=== PATIENT | female | born 1930 | race Caucasian/White ===

== ENCOUNTER 2016-11-23 20:51 | Observation (INO) ==
[2016-11-23 22:19] LABS: Basophils % 0.6 % (0.0-0.8); Eosinophils # 0.1 10*3/uL (0.0-0.87); Eosinophils % 0.9 % (0.00-10.9); Hematocrit 38.7 VOL% (35.7-47.0); Hemoglobin 13.8 GM/DL (12.0-16.0); Immature Granulocytes % 0.5 %; Immature Granulocytes Absolute 0.03 #; Lymphocytes # 0.3 10*3/uL (1.4-4.0); Lymphocytes % 5.4 % (21.3-54.2); Mean Corpuscular HGB Conc 35.7 GM/DL (32-36); Mean Corpuscular Hemoglobin 33 PG (27-34); Mean Corpuscular Volume 92.6 FL (87-102); Mean Platelet Volume 11.3 FL (9.6-12.0); Monocytes # 0.4 10*3/uL (0.11-0.8); Neutrophils # 5.4 10*3/uL (1.4-7.4); Neutrophils % 85.6 % (38.7-73.9); Platelet Count 113 T/CUMM (130-400); Red Blood Count 4.18 MC/CUMM (3.8-5.5); Red Cell Distribution Width 13.4 % (9.3-17.3); White Blood Count 6.3 T/CUMM (4-12)
[2016-11-23 22:24] LABS: Apearance,Urine Slightly Hazy (Clear); Bilirubin,Urine Negative (Negative); Blood, Urine Negative (Negative); Glucose,Urine (UA) Negative (Negative); Hyaline Casts,Urine 2 /LPF (0-3); Ketones,Urine Negative (Negative); Nitrite,Urine Negative (Negative); Protein,Urine Negative; RBC,Urine 1 /HPF (0-4); Squamous Epithelial Cell,Urine Occasional /HPF (0-10); Urine Color Yellow (Yellow); Urine Specific Gravity 1.008 (1.001-1.035); Urine Urobilinogen < 2.0 EU/DL (0.2-1.0); WBC,Urine 4 /HPF (0-6)
--- NOTE | 2016-11-23 22:29 | Order Completion Report ---
See report scanned to EMR
[2016-11-23 22:35] LABS: Albumin 3.6 G/DL (3.4-5.0); Bilirubin,Total 0.4 MG/DL (0.2-1.0); Calcium 8.5 MG/DL (8.5-10.1); Osmolality,Calculated 275.8 MOS/KG (273-304); Potassium 3.8 MMOL/L (3.5-5.1); Total Protein 6.5 G/DL (6.4-8.3)
--- NOTE | 2016-11-24 00:08 | Emergency Department Note ---
Arrival - Arrival Chief Complaint: Weakness ED Nursing Triage Note: pt brought in via ems from [facility] living with c/o weakness. pt ambulated to restroom, became weak and "had to sit in floor" pt had diarrhea at that time. was also found to have 101.5 temp. pt states that she had flu shot this am. Mode of Arrival: Stretcher Time Seen by Provider: 11/23/16 21:32 - History of Present Illness HPI Narrative: This is an 86-year-old white female with a history of a pacer who is living in an assisted living facility and who presents with generalized weakness and inability to stand associated with a temperature of 101 and diarrhea. The patient attempted to walk to the bathroom and had to sit on the floor because she felt so weak. In the emergency department the patient had an episode of diarrhea and was unable to get to the bathroom before she soiled herself. Vital signs are normal however the patient is unable to stand. Date of Last Menstrual Period: hysterectomy Allergies/Adverse Reactions: Allergies Allergy/AdvReac Type Severity Reaction Status Date / Time dimenhydrinate Allergy Unknown/Unable Verified 09/21/16 14:17 [From Dramamine] to obtain Sulfa (Sulfonamide Allergy Unknown/Unable Verified 09/21/16 14:17 Antibiotics) to obtain Review of System - Review of System Constitutional: Present: fever. Absent: night sweats, weakness Eyes: Absent: redness, vision change Head/Ears/Nose/Throat: Absent: epistaxis, nasal drainage Respiratory: Absent: respiratory distress, wheezing Cardiovascular: Absent: dyspnea on exertion, orthopnea, edema Gastrointestinal: Present: diarrhea. Absent: nausea, vomiting Genitourinary female: Absent: dysuria, frequency Musculoskeletal: Absent: joint swelling, lower back pain Skin: Absent: change in color, change in hair/nails, pruritus Neurological: Absent: numbness, paresthesias, confusion Psychiatric: Absent: anxiety, depression Endocrine: Absent: polydipsia, polyuria Hematological/Lymphatic: Absent: easy bruising, lymphadenopathy Allergic/Immunologic: Absent: urticaria, itchy eyes Medical,Surgical,& Family Hx - Medical History Cardio: History of: Cardiac Dysrhythmia (afib), Hypertension, Pacemaker Neurology: History of: Cerebrovascular Accident Endocrine: History of: Dyslipidemia - Social History Smoking Status: Never smoker Frequency of Alcohol Use: None Type of Drug Use: None Exam Vital Signs: Vital Signs Temperature 99.3 F 11/23/16 20:51 Pulse Rate 96 H 11/23/16 20:51 Respiratory Rate 20 11/23/16 20:51 Blood Pressure 180/101 11/23/16 20:51 O2 Sat by Pulse Oximetry 97 11/23/16 20:51 - General General appearance: alert - Head Head exam: Present: atraumatic, normocephalic - Eye Eye exam: Present: normal appearance, PERRL, EOMI - ENT ENT exam: Present: normal exam, normal oropharynx - Neck Neck exam: Present: normal inspection, full ROM - Chest Chest inspection: Present: normal inspection - Respiratory Respiratory exam: Present: normal lung sounds bilaterally - Cardiovascular Cardiovascular exam: Present: regular rate, normal rhythm - Abdominal Exam Abdominal exam: Present: soft, normal bowel sounds - Extremities Exam Extremities exam: Present: normal inspection, full ROM - Back Exam Back exam: Present: normal inspection, full ROM - Neurological Exam Neurological exam: Present: alert, oriented X3, CN II-XII intact - Psychiatric Psychiatric exam: Present: normal affect, normal mood - Skin Skin exam: Present: warm, dry Course Course Narrative: The patient's laboratory tests are normal. Because of the diarrhea is unexplained. The patient is incontinent of stool. There is no fever at this time and there is no suggestion that she has a septic picture. She lives in an assisted living facility and must be able to ambulate without assistance and in the emergency department the patient cannot stand on her own without falling. Although the laboratory tests are normal the patient will be admitted to the hospital under the hospitalist service because of ambulatory dysfunction unexplained diarrhea. Results - Labs CBC & BMP: 11/23/16 21:37 11/23/16 21:37 Disposition Clinical Impression: Intractable diarrhea, Ambulatory dysfunction Disposition: Still a Patient Additional Instructions: Because the patient is unable to stand which is a requirement for her assisted living facility because of intractable diarrhea of unclear etiology it seems reasonable the patient should be admitted to the hospital for further evaluation and treatment. The case was discussed with the hospitalist who agreed to admit the patient.
[2016-11-24] MEDS ORDERED: ONDANSETRON 4 MG/2 ML VIAL IV PRN (00:42)
[2016-11-24] MEDS ORDERED: ACETAMINOPHEN 325 MG TABLET PO PRN (00:42)
--- NOTE | 2016-11-24 00:50 | Hospitalist History & Physical ---
Assessment and Plan (1) Weakness Status: Acute Current Visit: Yes (2) Gastroenteritis Status: Acute Current Visit: Yes (3) Urinary tract infection Status: Acute Current Visit: Yes (4) Hypertension Status: Acute Current Visit: Yes (5) History of stroke Status: Acute Current Visit: Yes (6) Intractable diarrhea Status: Acute Assessment and plan: Our plan for this patient will be admitting her to our service. We will provide gentle hydration through the night. If she has diarrhea again we will do stool cultures. She appears to have urinary tract infection will treat that with Rocephin and culture her urine. Continue home meds once they are confirmed repeat labs in the morning. Also get physical therapy to evaluate her. Current Visit: Yes History of Present Illness Chief complaint: Weakness diarrhea fever History of present illness: Ms. Dubois is a 86 year old female with past medical history significant for hypertension pacemaker placement and stroke who was in her normal state of health until tonight. Patient went up to go to the bathroom she got will weak and went down to the floor. She is having fever and diarrhea. Patient reports she got her flu shot yesterday and questions whether this might have caused this. Patient has remained weak and lightheaded. I was consulted to admit her through the emergency room. She sees Dr. Chakraborty is her primary care provider. Allergies Allergy/AdvReac Type Severity Reaction Status Date / Time dimenhydrinate Allergy Unknown/Unable Verified 09/21/16 14:17 [From Dramamine] to obtain Sulfa (Sulfonamide Allergy Unknown/Unable Verified 09/21/16 14:17 Antibiotics) to obtain Medical,Surgical,& Family Hx - Medical History Cardio: History of: Cardiac Dysrhythmia (afib), Hypertension, Pacemaker Neurology: History of: Cerebrovascular Accident Endocrine: History of: Dyslipidemia - Surgical History Reproductive Surgeries: Surgical HX of;: Breast Surgery, Hysterectomy - Family History Family History: Reports;: Family Cancer, Family Diabetes, Family Heart Disease - Social History Smoking Status: Never smoker Frequency of Alcohol Use: None Type of Drug Use: None 12 point system: reviewed and no additional remarkable complaints except as stated Exam - Constitutional Vitals: Period Temp Pulse Resp BP Sys/Brown Pulse Ox Last 24 Hr 99.3 F-99.3 F 96-96 20-20 180-180/101-101 97 General appearance: normal weight - Head Head exam: Present: normal inspection - Eye Eye exam: Present: EOMI Pupils: Present: JANKI - ENT ENT exam: Present: normal exam - Neck Neck exam: Present: normal inspection - Respiratory Respiratory exam: Present: clear to auscultation bilaterally - Cardiovascular Cardiovascular exam: Present: regular rate and rhythm - GI/Abdominal GI/Abdominal exam: Present: normal bowel sounds - Extremities Exam Extremities exam: Present: normal inspection - Back Exam Back exam: Present: normal inspection - Neurological Exam Neurological exam: Present: alert - Psychiatric Psychiatric exam: Present: normal affect - Skin Skin exam: Present: normal color Results - Labs CBC & BMP: 11/23/16 21:37 11/23/16 21:37
[2016-11-24] MEDS ORDERED: SODIUM CHLORIDE 0.9% 1,000 ML IV SCH (01:00)
[2016-11-24] MEDS ORDERED: LABETALOL 20 MG/4 ML SYRINGE IV PRN (01:57)
[2016-11-24 06:31] LABS: Basophils % 0.5 % (0.0-0.8); Eosinophils % 0.5 % (0.00-10.9); Hematocrit 33.8 VOL% (35.7-47.0); Immature Granulocytes % 0.3 %; Immature Granulocytes Absolute 0.02 #; Lymphocytes # 0.6 10*3/uL (1.4-4.0); Lymphocytes % 10.2 % (21.3-54.2); Mean Corpuscular HGB Conc 35.5 GM/DL (32-36); Mean Corpuscular Hemoglobin 33 PG (27-34); Mean Corpuscular Volume 91.6 FL (87-102); Mean Platelet Volume 10.7 FL (9.6-12.0); Monocytes # 0.6 10*3/uL (0.11-0.8); Monocytes % 9.9 % (1.7-12.7); Neutrophils # 4.8 10*3/uL (1.4-7.4); Neutrophils % 78.6 % (38.7-73.9); Platelet Count 109 T/CUMM (130-400); Red Blood Count 3.69 MC/CUMM (3.8-5.5); Red Cell Distribution Width 13.3 % (9.3-17.3); White Blood Count 6.1 T/CUMM (4-12)
[2016-11-24 07:07] LABS: Albumin 2.7 G/DL (3.4-5.0); Bilirubin,Total 0.6 MG/DL (0.2-1.0); Calcium 8.4 MG/DL (8.5-10.1); Osmolality,Calculated 276.5 MOS/KG (273-304); Potassium 3.2 MMOL/L (3.5-5.1); Total Protein 5.4 G/DL (6.4-8.3)
--- NOTE | 2016-11-24 08:19 | XRay Report ---
Portable chest Date: 11/23/2016 Clinical history: Fever Comparison: 08/12/2013 Technique: Portable AP sitting chest Findings: The heart is minimally enlarged with uncoiling of aorta. Left subclavian atrioventricular permanent pacemaker is stable in position. Chronic scarring in the lungs with minimal atelectasis/infiltration at left lung base. Calcified granulomata/nodes. Degenerative changes are noted. Impression: Minimal cardiomegaly with left subclavian atrioventricular permanent pacemaker. Chronic scarring with minimal atelectasis/infiltration at left lung base. PROCEDURE INTERPRETED AT [facility] DEPARTMENT OF RADIOLOGY Final Report Signed by: Dr. Poornima Edmondson
[2016-11-24] MEDS: ENOXAPARIN 40 MG/0.4 ML SYRINGE SUBCUT SCH (08:35)
[2016-11-24] MEDS ORDERED: PANTOPRAZOLE 40 MG TABLET PO SCH (09:00)
[2016-11-24] MEDS: metroNIDAZOLE INJ 500 MG in PREMIX 1 EACH IV SCH ×2 (09:40→20:43)
--- NOTE | 2016-11-24 09:40 | CT Report ---
Referring physician: Shira Morales MD EXAM: CT abdomen and pelvis without contrast DATE: 11/24/2016 COMPARISON: None REASON: Diarrhea, fever TECHNIQUE: Axial images of the abdomen and pelvis were obtained without the use of contrast. Coronal and sagittal reformatted images were also provided. Total DLP is 250.10 mGy*cm. FINDINGS: Atelectasis at the lung bases. The heart is enlarged with permanent pacemaker and coronary artery calcifications. Tiny pleural effusions/minimal posterior pleural thickening. Calcified granulomata in the liver and spleen. Minimal elongation of the right lobe of the liver with 24 x 21 x 18 mm hypodensity in the posterior right lobe. No dilated ducts are noted. The gallbladder is contracted and appears to contain minimal hyperdense findings. No definite pathology noted in the pancreas, adrenal glands, and kidneys. Calcification in the wall the nondilated abdominal aorta with no adjacent adenopathy. The small bowel is larger in size in the left upper quadrant measuring 35 mm in diameter. The more distal small bowel is smaller in size. Small fat-containing umbilical hernia. Limited evaluation of bowel without oral contrast. Diverticulosis of the colon with no evidence of definite diverticulitis, appendicitis, free air, or free fluid. Prior hysterectomy with no definite urinary bladder pathology identified. Minimal dextroscoliosis with degenerative changes. IMPRESSION: Cardiomegaly with permanent pacemaker and coronary artery calcifications. Tiny pleural effusions/minimal posterior pleural thickening with atelectasis at the lung bases. Evidence of old healed granulomatous disease with 24 mm probable right hepatic cyst. Contracted gallbladder with equivocal cholelithiasis. Fasting gallbladder ultrasound may be helpful for further evaluation. Minimal dilatation of the small bowel in the left upper quadrant which could be related possible ileus but it is difficult to exclude possible early SBO, etc. Small fat-containing umbilical hernia with diverticulosis of the colon. Limited evaluation of the bowel without oral contrast. Prior hysterectomy. The CT exam was performed using one or more of the following dose reduction techniques: Automated exposure control and adjustment of the mA and/or kV according to patient size. PROCEDURE INTERPRETED AT [facility] DEPARTMENT OF RADIOLOGY Final Report Signed by: Dr. Poornima Edmondson
--- NOTE | 2016-11-24 10:58 | Hospitalist Progress Note ---
Assessment and Plan (1) Urinary tract infection Status: Acute Assessment and plan: continue with IVF, IV antibiotics, follow cultures Current Visit: Yes (2) Gall stones Status: Acute Assessment and plan: CT showed Contracted gallbladder with equivocal cholelithiasis. plan Fasting gall bladder USS Consult surgery Current Visit: Yes (3) Ileus Status: Acute Assessment and plan: vs early SBO on CT. Patient apparently tolerating po intake Plan Liquid diet KUB continue with IVF, IV antibiotics Current Visit: Yes (4) History of atrial fibrillation Status: Acute Assessment and plan: s/p pacemaker.HR is controlled. We will get an INR before Coumadin is resumed, we will restart rate controlling agents. Current Visit: Yes (5) Hypokalemia Status: Acute Assessment and plan: we will replete, repeat levels in am Current Visit: Yes (6) Weakness Status: Acute Assessment and plan: improving Current Visit: Yes (7) Hypertension Status: Acute Assessment and plan: Resume home meds Current Visit: Yes (8) History of stroke Status: Acute Assessment and plan: resume aspirin Current Visit: Yes (9) Dyslipidemia Status: Acute Assessment and plan: resume statins Current Visit: Yes Hospitalist: Subjective Interval history: Patient seen this am. She states that she only had an episode of diarrhoea after receiving her flu shots yesterday. She denies abd pain, nausea, vomiting. She also denies urinary symptoms. This am, she feels much better. CT abd/pelvis showed some contracted gall bladder with equivocal cholelithiasis and possible ileus vs early small bowel obstruction. Exam - Constitutional Vitals: Period Temp Pulse Resp BP Sys/Brown Pulse Ox Last 24 Hr 98.2 F-99.3 F 76-98 18-20 143-180/72-101 96-98 General appearance: no acute distress - Head Head exam: Present: normal inspection - Respiratory Respiratory exam: Present: clear to auscultation bilaterally - Cardiovascular Cardiovascular exam: Present: regular rate and rhythm - GI/Abdominal GI/Abdominal exam: Present: normal bowel sounds - Extremities Exam Extremities exam: Present: normal inspection - Neurological Exam Neurological exam: Present: alert, oriented X3 Results - Labs CBC & BMP: 11/24/16 06:21 11/24/16 06:21 Lab Results: I have reviewed the past 24 hour labs
[2016-11-24] MEDS: PANTOPRAZOLE 40 MG VIAL IV SCH (11:32)
[2016-11-24 11:47] LABS: INR 2.2
[2016-11-24 11:54] LABS: PT Patient Result 22.1 SECS
--- NOTE | 2016-11-24 15:32 | XRay Report ---
KUB. Indication: Generalized abdominal pain. Ileus. No prior studies. The heart is borderline enlarged. The lung bases are clear. No intra-abdominal organomegaly. There is moderate gaseous distention of small and large intestine, with gas extending to the rectum, excluding complete obstruction. Scattered vascular calcification. Scoliosis and degenerative change involving the spinal column. Impression: Moderate gaseous distention of bowel. PROCEDURE INTERPRETED AT [facility] DEPARTMENT OF RADIOLOGY Final Report Signed by: Dr. Melody Li
[2016-11-24] MEDS: CARVEDILOL 25 MG TABLET PO SCH (16:58)
[2016-11-24] MEDS: SODIUM CHLOR 0.9% KCL 20 MEQ 20 MEQ/1,000 ML BAG IV SCH (17:43)
[2016-11-24] MEDS: SOTALOL 80 MG TABLET PO SCH (20:41)
[2016-11-24] MEDS: DOCUSATE SODIUM 100 MG CAPSULE PO SCH (20:41)
[2016-11-24] MEDS: SIMVASTATIN 10 MG TABLET PO SCH (20:41)
--- NOTE | 2016-11-24 20:43 | General Surgery Consult Note ---
Assessment and Plan - Time spent with patient Time spent with patient: Less than 30 minutes (1) Chronic cholecystitis Status: Acute Assessment and plan: Impression: Probable chronic cholecystitis Plan 1 I think just good observation of her can be the best option due to her age and other medical problems. 2. Would not pursue surgery unless there was more definitive evidence that she was having symptoms related to the gallbladder. 3. Contracted gallbladder could be due to the fact she is recently eaten or gotten some medication at the time they did a CT are the fact that it may be a chronic contraction has been that way for many years without any unusual symptoms. I feel like observation is going to be our safest bed unless something comes up her presents itself is being more positive for gallbladder disease. Current Visit: Yes History of Present Illness Chief complaint: As to see patient with a contracted gallbladder on CT History of present illness: Ms. Dubois is a 86 year old female white who has multiple medical problems including pacemaker and history of stroke. She is on Coumadin at this time and her INR is elevated at 2.2. She came in primarily because she had some syncope with weakness and some diarrhea. She has not complained of any abdominal discomfort during this time. She is put in on some IV fluids at this time and a CT scan essentially was unremarkable except for the contracted gallbladder that was noted. Patient does not give any history suggestive of any fatty food intolerance she does not describe any tenderness in the epigastric area or right upper quadrant region. White count stenosing not significantly elevated liver function studies are normal at this point. The contracted gallbladder may be a chronic thing and may not be of any significance this time and may not represent any acute disease. Unless she had something more specific symptom davies and physical finding davies I am not sure in her general status to be davies to proceed surgery at this time. If there is no problem with her eating and no unusual nausea or vomiting or anything associated with meals then we may be able to just watch her at this point time. I see that an ultrasound has been ordered and also go ahead and check a HIDA scan although I must expecting it to be very accurate at this time. Home Medications Medication Instructions Recorded Confirmed Type Aspirin EC Tab 325 mg PO DAILY 11/24/16 11/24/16 History Carvedilol [Coreg] 25 mg PO BID W/MEALS 11/24/16 11/24/16 History Docusate Sodium 100 mg PO BID 11/24/16 11/24/16 History Lactulose Liquid [Chronulac] 20 gm PO DAILY 11/24/16 11/24/16 History Lisinopril 20 mg PO DAILY 11/24/16 11/24/16 History Mv-Mn/FA/Coq10/Lycopene/Lutein 1 each PO DAILY 11/24/16 11/24/16 History [Theragran-M Premier 50+ Caplet] Omeprazole 20 mg PO DAILY 11/24/16 11/24/16 History Raloxifene [Evista] 60 mg PO DAILY 11/24/16 11/24/16 History Simvastatin 10 mg PO BEDTIME 11/24/16 11/24/16 History Sotalol [Betapace] 160 mg PO BID 11/24/16 11/24/16 History Warfarin [Coumadin] 4 mg PO SUTUWEFRSA@18 11/24/16 11/24/16 History Warfarin [Coumadin] 6 mg PO MOTH@18 11/24/16 11/24/16 History amLODIPine [Norvasc] 2.5 mg PO DAILY 11/24/16 11/24/16 History Allergies Allergy/AdvReac Type Severity Reaction Status Date / Time dimenhydrinate Allergy Unknown/Unable Verified 09/21/16 14:17 [From Dramamine] to obtain Sulfa (Sulfonamide Allergy Unknown/Unable Verified 09/21/16 14:17 Antibiotics) to obtain Medical,Surgical,& Family Hx - Medical History Cardio: History of: Cardiac Dysrhythmia (afib), Hypertension, Pacemaker Neurology: History of: Cerebrovascular Accident Endocrine: History of: Dyslipidemia - Surgical History Reproductive Surgeries: Surgical HX of;: Breast Surgery, Hysterectomy - Family History Family History: Reports;: Family Cancer, Family Diabetes, Family Heart Disease - Social History Smoking Status: Never smoker Frequency of Alcohol Use: None Type of Drug Use: None 12 point system: reviewed and no additional remarkable complaints except as stated Exam - Constitutional Vitals: Period Temp Pulse Resp BP Sys/Brown Pulse Ox Last 24 Hr 98.0 F-99.3 F 65-100 18-20 143-180/69-101 95-98 General appearance: mild distress - Head Head exam: Present: normal inspection - ENT ENT exam: Present: normal exam - Neck Neck exam: Present: normal inspection - Respiratory Respiratory exam: Present: rales, rhonchi - Cardiovascular Cardiovascular exam: Present: RRR - GI/Abdominal GI/Abdominal exam: Present: hypoactive bowel sounds, soft. Absent: tenderness - Extremities Exam Extremities exam: Present: normal inspection - Back Exam Back exam: Present: normal inspection - Neurological Exam Neurological exam: Present: alert, oriented X3, CN II-XII intact - Skin Skin exam: Present: normal color, warm, dry Results - Labs CBC & BMP: 11/24/16 06:21 11/24/16 06:21 Lab Results: I have reviewed the past 24 hour labs - Diagnostic Findings Procedure: CT Abdomen and Pelvis: report reviewed by me (Contracted gallbladder)
[2016-11-25] MEDS: metroNIDAZOLE INJ 500 MG in PREMIX 1 EACH IV SCH ×3 (04:50→21:23)
[2016-11-25 06:09] LABS: Basophils # 0.1 10*3/uL (0.0-0.2); Basophils % 1.1 % (0.0-0.8); Eosinophils # 0.3 10*3/uL (0.0-0.87); Eosinophils % 5.5 % (0.00-10.9); Hematocrit 36.1 VOL% (35.7-47.0); Hemoglobin 12.4 GM/DL (12.0-16.0); Immature Granulocytes % 0.2 %; Immature Granulocytes Absolute 0.01 #; Lymphocytes # 0.9 10*3/uL (1.4-4.0); Mean Corpuscular HGB Conc 34.3 GM/DL (32-36); Mean Corpuscular Hemoglobin 32 PG (27-34); Mean Corpuscular Volume 93.8 FL (87-102); Mean Platelet Volume 11.8 FL (9.6-12.0); Monocytes # 0.7 10*3/uL (0.11-0.8); Monocytes % 14.5 % (1.7-12.7); Neutrophils # 2.8 10*3/uL (1.4-7.4); Neutrophils % 59.7 % (38.7-73.9); Platelet Count 100 T/CUMM (130-400); Red Blood Count 3.85 MC/CUMM (3.8-5.5); Red Cell Distribution Width 13.8 % (9.3-17.3); White Blood Count 4.7 T/CUMM (4-12)
[2016-11-25 06:25] LABS: INR 1.9; PT Patient Result 19.4 SECS
[2016-11-25 06:47] LABS: Albumin 2.7 G/DL (3.4-5.0); Bilirubin,Total 0.6 MG/DL (0.2-1.0); Calcium 8.5 MG/DL (8.5-10.1); Magnesium 2.2 MG/DL (1.8-2.4); Potassium 3.9 MMOL/L (3.5-5.1); Total Protein 5.5 G/DL (6.4-8.3)
--- NOTE | 2016-11-25 08:45 | Ultrasound Report ---
History is abdominal pain The liver is normal in size. There is a 2.3 cm cyst with thin septation in the right lobe of the liver No gallstones or biliary ductal dilatation seen There is mild dilatation of the renal calyces on the right. Right renal cortical echogenicity is normal Visualized pancreas and proximal aorta and IVC are normal in size Impression: 1. Mild caliectasis in the right kidney. Is there any clinical question of acute ureteral obstruction? 2. 2.3 cm mildly complicated hepatic cyst PROCEDURE INTERPRETED AT [facility] DEPARTMENT OF RADIOLOGY Final Report Signed by: Dr. Joy Li
--- NOTE | 2016-11-25 09:38 | Nuclear Medicine Report ---
History is contracted gallbladder and diarrhea 5.0 mCi technetium 99m Choletec utilized There is prompt uptake of radiotracer in the liver Gallbladder activity seen at 20 minutes Small bowel activity seen at 45 minutes Following administration of 8 ounces of ensure p.o., estimated gallbladder ejection fraction is 80% (normal is 40% or greater) Impression: Unremarkable gallbladder scan with normal gallbladder ejection fraction PROCEDURE INTERPRETED AT [facility] DEPARTMENT OF RADIOLOGY Final Report Signed by: Dr. Joy Li
[2016-11-25] MEDS: CARVEDILOL 25 MG TABLET PO SCH ×2 (10:40→17:15)
[2016-11-25] MEDS: ASPIRIN EC 325 MG TABLET PO SCH (10:41)
[2016-11-25] MEDS: SOTALOL 80 MG TABLET PO SCH ×2 (10:41→21:24)
[2016-11-25] MEDS: MULTIVITAMIN (CENTRUM) TABLET PO SCH (10:41)
[2016-11-25] MEDS: DOCUSATE SODIUM 100 MG CAPSULE PO SCH ×2 (10:42→21:23)
[2016-11-25] MEDS: ENOXAPARIN 40 MG/0.4 ML SYRINGE SUBCUT SCH (10:42)
[2016-11-25] MEDS: LACTULOSE 20 GM/30 ML UDCUP PO SCH ×2 (10:42→17:18)
[2016-11-25] MEDS: RALOXIFENE 60 MG TABLET PO SCH (10:42)
[2016-11-25] MEDS: amLODIPine 2.5 MG TABLET PO SCH (10:43)
[2016-11-25] MEDS: LISINOPRIL 20 MG TABLET PO SCH (10:43)
[2016-11-25] MEDS: PANTOPRAZOLE 40 MG VIAL IV SCH (10:43)
--- NOTE | 2016-11-25 12:16 | Hospitalist Progress Note ---
Assessment and Plan (1) Urinary tract infection Status: Acute Assessment and plan: UC grew gram positive cocci. USS showed a Mild caliectasis in the right kidney. Plan Urology consult continue with IVF, IV antibiotics, Current Visit: Yes (2) Gall stones Status: Acute Assessment and plan: CT showed Contracted gallbladder with equivocal cholelithiasis.USS showed Mild caliectasis in the right kidney. Is there any clinical question of acute ureteral obstruction? 2. 2.3 cm mildly complicated hepatic cyst HIDA scan showed:Unremarkable gallbladder scan with normal gallbladder ejection fraction plan Follow surgery's recommendations Current Visit: Yes (3) Ileus Status: Acute Assessment and plan: vs early SBO on CT. Patient apparently tolerating po intake, Continue liquid diet, will advance feeds in am. Plan continue with IVF, IV antibiotics Current Visit: Yes (4) History of atrial fibrillation Status: Acute Assessment and plan: s/p pacemaker.HR is controlled. Coumadin to be resumed, continue with meds Current Visit: Yes (5) Hypokalemia Status: Acute Assessment and plan: repleted Current Visit: Yes (6) Weakness Status: Acute Assessment and plan: improving Current Visit: Yes (7) Hypertension Status: Acute Assessment and plan: stable Current Visit: Yes (8) History of stroke Status: Acute Assessment and plan: on aspirin Current Visit: Yes (9) Dyslipidemia Status: Acute Assessment and plan: on statins Current Visit: Yes Hospitalist: Subjective Interval history: Patient seen today. She had no new issues.She feels better. HIDA scan showed Unremarkable gallbladder scan with normal gallbladder ejection fraction.Abd USS showed a Mild caliectasis in the right kidney and a 2.3 cm mildly complicated hepatic cyst Exam - Constitutional Vitals: Period Temp Pulse Resp BP Sys/Brown Pulse Ox Last 24 Hr 97.3 F-98.7 F 62-71 18-20 138-152/69-86 95-98 General appearance: no acute distress - Head Head exam: Present: normal inspection - Respiratory Respiratory exam: Present: clear to auscultation bilaterally - Cardiovascular Cardiovascular exam: Present: regular rate and rhythm - GI/Abdominal GI/Abdominal exam: Present: normal bowel sounds - Extremities Exam Extremities exam: Present: normal inspection - Back Exam Back exam: Present: normal inspection - Neurological Exam Neurological exam: Present: alert, oriented X3 Results - Labs CBC & BMP: 11/25/16 05:35 11/25/16 05:34 Lab Results: I have reviewed the past 24 hour labs
--- NOTE | 2016-11-25 14:40 | Urology Consultation ---
History of Present Illness - Data of Consult Consult date: 11/25/16 - Consult Narrative History of present illness: Ms. Dubois is a 86 year old female This 86-year-old white female is seen in consultation because of possible caliectasis the right kidney seen on gallbladder ultrasound the patient has no flank pain and her only urinary symptom is urinary frequency. She has a negative urinalysis and a positive clean-catch urine culture. The patient has no past history of any serious urological problems and she has had a negative KUB and a CT scan of the abdomen and pelvis without contrast shows no stones no evidence of hydronephrosis and no renal mass. There is no significant hematuria on urinalysis and her creatinine is normal. The radiologist questions whether or not there is ureteral obstruction on the right side so on the recommended we screen her with an IVP CC: Shira Morales MD - Home Medications and Allergies Home Medications: Home Medications Medication Instructions Recorded Confirmed Type Aspirin EC Tab 325 mg PO DAILY 11/24/16 11/24/16 History Carvedilol [Coreg] 25 mg PO BID W/MEALS 11/24/16 11/24/16 History Docusate Sodium 100 mg PO BID 11/24/16 11/24/16 History Lactulose Liquid [Chronulac] 20 gm PO DAILY 11/24/16 11/24/16 History Lisinopril 20 mg PO DAILY 11/24/16 11/24/16 History Mv-Mn/FA/Coq10/Lycopene/Lutein 1 each PO DAILY 11/24/16 11/24/16 History [Theragran-M Premier 50+ Caplet] Omeprazole 20 mg PO DAILY 11/24/16 11/24/16 History Raloxifene [Evista] 60 mg PO DAILY 11/24/16 11/24/16 History Simvastatin 10 mg PO BEDTIME 11/24/16 11/24/16 History Sotalol [Betapace] 160 mg PO BID 11/24/16 11/24/16 History Warfarin [Coumadin] 4 mg PO SUTUWEFRSA@18 11/24/16 11/24/16 History Warfarin [Coumadin] 6 mg PO MOTH@18 11/24/16 11/24/16 History amLODIPine [Norvasc] 2.5 mg PO DAILY 11/24/16 11/24/16 History Allergies/Adverse Reactions: Allergies Allergy/AdvReac Type Severity Reaction Status Date / Time dimenhydrinate Allergy Unknown/Unable Verified 09/21/16 14:17 [From Dramamine] to obtain Sulfa (Sulfonamide Allergy Unknown/Unable Verified 09/21/16 14:17 Antibiotics) to obtain Medical,Surgical,& Family Hx - Medical History Cardio: History of: Cardiac Dysrhythmia (afib), Hypertension, Pacemaker Neurology: History of: Cerebrovascular Accident Endocrine: History of: Dyslipidemia - Surgical History Reproductive Surgeries: Surgical HX of;: Breast Surgery, Hysterectomy - Family History Family History: Reports;: Family Cancer, Family Diabetes, Family Heart Disease - Social History Smoking Status: Never smoker Frequency of Alcohol Use: None Type of Drug Use: None Exam - Constitutional Vitals: Period Temp Pulse Resp BP Sys/Brown Pulse Ox Last 24 Hr 97.3 F-98.7 F 62-71 18-20 138-152/69-86 95-98 Results - Labs CBC & BMP: 11/25/16 05:35 11/25/16 05:34
--- NOTE | 2016-11-25 17:07 | XRay Report ---
IVP PE with tomograms. Indication: Gallbladder ultrasound suggesting caliectasis at the right kidney. [facility] radiograph demonstrates a mild gaseous distention of bowel, with numerous pelvic calcifications. Curvilinear calcification on the right, at the L5 level, likely vascular. Following the intravenous administration of 100 cc Omni 300, renal excretion is prompt and uniform. The renal outlines are normal in size, location, and contour. The collecting systems fill out readily, without evidence of pelvocaliectasis. The ureters are normal in course and caliber. The urinary bladder presents a normal appearance. There is a minimal post void residual within the urinary bladder following voiding. Impression: Normal IVP. Mild increased post void residual within the urinary bladder. PROCEDURE INTERPRETED AT [facility] DEPARTMENT OF RADIOLOGY Final Report Signed by: Dr. Melody Li
[2016-11-25] MEDS: SODIUM CHLOR 0.9% KCL 20 MEQ 20 MEQ/1,000 ML BAG IV SCH (17:20)
[2016-11-25] MEDS ORDERED: WARFARIN 4 MG TABLET PO SCH (18:00)
[2016-11-25] MEDS: SIMVASTATIN 10 MG TABLET PO SCH (21:24)
[2016-11-26 03:37] LABS: Eosinophils # 0.3 10*3/uL (0.0-0.87); Eosinophils % 6.5 % (0.00-10.9); Hematocrit 32.7 VOL% (35.7-47.0); Hemoglobin 11.3 GM/DL (12.0-16.0); Immature Granulocytes % 0.5 %; Immature Granulocytes Absolute 0.02 #; Lymphocytes # 1.2 10*3/uL (1.4-4.0); Mean Corpuscular HGB Conc 34.6 GM/DL (32-36); Mean Corpuscular Hemoglobin 32 PG (27-34); Mean Corpuscular Volume 92.9 FL (87-102); Mean Platelet Volume 11.2 FL (9.6-12.0); Monocytes # 0.7 10*3/uL (0.11-0.8); Monocytes % 16.7 % (1.7-12.7); Neutrophils # 1.9 10*3/uL (1.4-7.4); Neutrophils % 45.3 % (38.7-73.9); Platelet Count 101 T/CUMM (130-400); Red Blood Count 3.52 MC/CUMM (3.8-5.5); Red Cell Distribution Width 13.7 % (9.3-17.3); White Blood Count 4.1 T/CUMM (4-12)
[2016-11-26 03:47] LABS: INR 1.7; PT Patient Result 17.9 SECS
[2016-11-26 04:04] LABS: Calcium 8.1 MG/DL (8.5-10.1); Osmolality,Calculated 281.1 MOS/KG (273-304); Potassium 3.7 MMOL/L (3.5-5.1)
[2016-11-26 05:12] LABS: Eosinophils 6 % (0-10); Giant Platelets Few; Hypochromasia 1+; Lymphocytes 29 % (20-55); Microcytosis Slight; Ovalocytes Slight; Platelet Estimate Decreased; Segmented Neutrophils 59 % (50-85); Total Cells Counted 100
--- NOTE | 2016-11-26 07:56 | Urology Progress Note ---
Urology - PN: Subj Interval history: The patient's IVP is normal. There is no evidence of caliectasis Exam - Constitutional Vitals: Period Temp Pulse Resp BP Sys/Brown Pulse Ox Last 24 Hr 97.2 F-98.2 F 61-75 18-20 128-144/63-84 93-97 Results - Labs CBC & BMP: 11/26/16 03:01 11/26/16 03:01
[2016-11-26] MEDS: LISINOPRIL 20 MG TABLET PO SCH (08:58)
[2016-11-26] MEDS: RALOXIFENE 60 MG TABLET PO SCH (08:58)
[2016-11-26] MEDS: CARVEDILOL 25 MG TABLET PO SCH (08:59)
[2016-11-26] MEDS: SOTALOL 80 MG TABLET PO SCH (08:59)
[2016-11-26] MEDS: MULTIVITAMIN (CENTRUM) TABLET PO SCH (08:59)
[2016-11-26] MEDS: amLODIPine 2.5 MG TABLET PO SCH (09:00)
[2016-11-26] MEDS: ASPIRIN EC 325 MG TABLET PO SCH (09:00)
[2016-11-26] MEDS: DOCUSATE SODIUM 100 MG CAPSULE PO SCH ×2 (09:00→09:09)
[2016-11-26] MEDS: LACTULOSE 20 GM/30 ML UDCUP PO SCH ×2 (09:00→09:08)
[2016-11-26] MEDS: ENOXAPARIN 40 MG/0.4 ML SYRINGE SUBCUT SCH (09:00)
[2016-11-26] MEDS: PANTOPRAZOLE 40 MG VIAL IV SCH (09:09)
[2016-11-26] MEDS: metroNIDAZOLE INJ 500 MG in PREMIX 1 EACH IV SCH (09:10)
--- NOTE | 2016-11-26 09:21 | General Surgery Progress Note ---
Assessment and Plan - Time spent with patient Time spent with patient: Less than 30 minutes (1) Chronic cholecystitis Status: Acute Assessment and plan: 11/26/2016. Contracted gallbladder but no evidence of gallstones and normal HIDA scan. The patient is now asymptomatic and from our standpoint could be advanced to diet as tolerated. We will be happy to see her again at any point. Current Visit: Yes Subjective Patient reports: Present: no new complaints, tolerating liquids well. Absent: diarrhea, nausea, vomiting Exam - Constitutional Vitals: Period Temp Pulse Resp BP Sys/Brown Pulse Ox Last 24 Hr 97.2 F-98.2 F 61-75 18-20 128-144/63-84 93-97 General appearance: no acute distress - GI/Abdominal GI/Abdominal exam: Present: normal bowel sounds, soft. Absent: tenderness Results - Labs CBC & BMP: 11/26/16 03:01 11/26/16 03:01 Lab Results: I have reviewed the past 24 hour labs (Gallbladder ultrasound shows no gallstones no liver abnormalities. HIDA scan is within normal limits. There is a questionable ureteral obstruction but tomograms are negative and urology consult has been obtained, and is cleared her of any calculi.)
--- NOTE | 2016-11-26 11:15 | Discharge Summary ---
<Jignesh Guerrero - Last Filed: 11/26/16 11:15> Hospital Course - Hospital Course Hospital Course: Ms. Dubois is a 86 yr old female with a past medical history of hypertension, stroke, and pacemaker placement presented to the ED on 11/24 with complaints of weakness, fever, and diarrhea. Patient reported receiving her flu shot earlier in the day and wondered if that might have been the cause of her illness. Labs on admission revealed a urinary tract infection. Patient was admitted to the hospitalist service for further evaluation and treatment. Patient was treated with IV fluids and IV antibiotics. Her stools and urine were cultured. A CT of abdomen and pelvis was performed and showed 'contracted gallbladder with equivocal cholelithiasis'. The scan also showed minimal dilation of the small bowel which could be related to possible ileus versus early SBO'. PET scan showed unremarkable gallbladder scan with normal gallbladder ejection fraction. General surgery was consulted. Observation with the plan of action given patient 's age and other medical problems. Abdominal ultrasound showed a mild caliectasis in right kidney. Urology was consulted. Pt. was screened with IVP and it was normal. Pt is now asymptomatic and can be discharged home. Labs are stable. UC grew Enterococcus faecalis so patient will be dcd on ampicillin 250mg qid x5days. Specialty Discharge - Follow Up or Referrals Follow up with: Jorge Arnett MD [Physician] - 1 Month Discharge Plan - Discharge Data Disposition: Disch To Home/Self Care - Discharge Medications New Acetaminophen Tab [Tylenol Tab] 650 mg PO Q4H PRN tablet PRN Reason: Fever, Headache, Mild Pain Ampicillin Cap 250 mg PO QID #20 capsule Warfarin [Coumadin] 6 mg PO MoTh@1800 tablet Warfarin [Coumadin] 4 mg PO SuTuWeFrSa@1800 tablet Continue Aspirin EC Tab 325 mg PO DAILY Omeprazole 20 mg PO DAILY Carvedilol [Coreg] 25 mg PO BID W/MEALS Lisinopril 20 mg PO DAILY amLODIPine [Norvasc] 2.5 mg PO DAILY Raloxifene [Evista] 60 mg PO DAILY Mv-Mn/FA/Coq10/Lycopene/Lutein [Theragran-M Premier 50+ Caplet] 1 each PO DAILY Simvastatin 10 mg PO BEDTIME Docusate Sodium 100 mg PO BID Sotalol [Betapace] 160 mg PO BID Discontinued Warfarin [Coumadin] 4 mg PO SUTUWEFRSA@18 Lactulose Liquid [Chronulac] 20 gm PO DAILY Warfarin [Coumadin] 6 mg PO MOTH@18 - Follow Up or Referral Follow Up: Jorge Arnett MD [Physician] - 1 Month - Forms/Instructions Exam - Constitutional Vitals: Period Temp Pulse Resp BP Sys/Brown Pulse Ox Last 24 Hr 97.2 F-98.2 F 61-75 18-20 128-144/63-84 93-97 Discharge Results Procedures and tests throughout hospitalization: Pending Orders 11/23/16 23:10 Blood Culture Stat 11/24/16 01:57 Stool for WBCs Routine 11/24/16 07:59 C. Diff Toxins A & B Routine Occult Blood, Stool Routine Stool Culture/Campy/Yersinia Routine Stool Culture/Yersinia Routine 11/24/16 11:31 Cryptosporidium Antigen Stool Routine Labs on day of discharge: Labs from last 24 hours 11/26/16 11/26/16 11/26/16 03:01 03:01 03:01 WBC 4.1 RBC 3.52 L Hgb 11.3 L Hct 32.7 L MCV 92.9 MCH 32 MCHC 34.6 RDW 13.7 Plt Count 101 L MPV 11.2 Neut % (Auto) 45.3 Lymph % (Auto) 30.0 Davison % (Auto) 16.7 H Eos % (Auto) 6.5 Baso % (Auto) 1.0 H Neut # (Auto) 1.9 Lymph # (Auto) 1.2 L Davison # (Auto) 0.7 Eos # (Auto) 0.3 Baso # (Auto) 0.0 Total Counted 100 Immature Gran % 0.5 Nucleated RBC % 0.0 Immature Gran # 0.02 Segmented Neutrophils 59 Lymphocytes 29 Monocytes 6 Eosinophils 6 Nucleated RBCs # 0.00 Platelet Estimate Decreased Giant Platelets Few Immature Plt Fraction 0.0 Hypochromasia 1+ Microcytosis Slight Ovalocytes Slight Morphology Comment INR 1.7 PT Patient/Control Mix 17.9 Sodium 142 Potassium 3.7 Chloride 111 H Carbon Dioxide 24 Anion Gap 10.7 BUN 9 Creatinine 0.50 L GFR Calculation 79 BUN/Creatinine Ratio 18.00 Glucose 94 Calculated Osmolality 281.1 Calcium 8.1 L Preliminary micro results at discharge 11/23/16 23:10 Blood Culture - Preliminary Blood No growth at 1 day 11/23/16 23:10 Blood Culture - Preliminary Blood No growth at 1 day DS: Provider Date of admission: 11/24/16 00:42 Primary care physician: . No PCP Attending physician on admission: Shira Morales MD Consults: 11/24/16 00:47 Consult to Physical Therapy [CONS] Routine Reason for Physical Therapy: Evaluate and Treat 11/24/16 11:14 Consult to Physician [CONS] Routine Comment: [facility] Consulting Provider: Jorge Magana 11/25/16 12:25 Consult to Physician [CONS] Routine Comment: caliectasis right kidney Consulting Provider: Dc Reed Person Notified: JEANETTE Date Notified: 11/25/16 Time Notified: 13:51 Discharging clinician: Jignesh Guerrero NP <Shira Morales - Last Filed: 11/26/16 12:13> Hospital Course - Time spent with patient Time with patient DS: Greater than 30 minutes (Time greater than 35mins) Diagnosis - Discharge Diagnosis (1) Urinary tract infection Status: Acute (2) Gall stones Status: Acute (3) Ileus Status: Acute (4) History of atrial fibrillation Status: Acute (5) Hypokalemia Status: Acute (6) Weakness Status: Acute (7) Hypertension Status: Acute (8) History of stroke Status: Acute (9) Dyslipidemia Status: Acute Discharge Plan - Discharge Data Condition at Discharge: Stable Discharge Diet: advance to your usual diet Activity: resume usual activities as tolerated - Forms/Instructions Additional Discharge Instructions: Follow PCP in 1week Exam - Constitutional General appearance: no acute distress - Head Head exam: Present: normal inspection - Eye Eye exam: Present: EOMI - Respiratory Respiratory exam: Present: clear to auscultation bilaterally - Cardiovascular Cardiovascular exam: Present: regular rate and rhythm - GI/Abdominal GI/Abdominal exam: Present: normal bowel sounds - Extremities Exam Extremities exam: Present: normal inspection
[2016-11-26 12:09] VITALS: BP 131/79
[2016-11-26] MEDS ORDERED: WARFARIN 3 MG TABLET PO SCH (18:00)
== END 2016-11-26 13:29 | disposition home or self-care (01) ==
LOC: EDBD → EDUNIT# → N.EDINP 20:51 → N.ED 20:51 → N.2E 11-24 01:37
PROVIDERS: ADMIT Internal Medicine; ATTEND Internal Medicine